=== PATIENT | female | born 1995 | race Caucasian/White ===

== ENCOUNTER → 2020-04-28 | Outpatient (CLI) | payer OTHER ==
--- NOTE | 2020-04-28 16:18 | RADIOLOGY REPORT (SQ) ---
EXAM DESCRIPTION: U/S OB 14+ TRNABD 1GES W/O DOP IMAGES COMPLETED DATE/TIME: 04/28/2020 3:33 pm REASON FOR STUDY: Z34.02 ENCNTR FOR SUPRVSN OF NORMAL FIRST PREG, SECOND TRIMESTER Z34.02 ENCNTR FO R SUPRVSN OF NORMAL FIRST PREG, SECOND TRIME COMPARISON: None. TECHNIQUE: Limited transabdominal grayscale ultrasound for evaluation of specific requested obstetri arias parameters. LIMITATIONS: None. FINDINGS: CERVICAL LENGTH: 2.2 cm. Closed. JILL: adequate amount. FHR: 160 beats per minute. PRESENTATION: Breech. PLACENTA: Posterior. ANATOMY: Not assessed OTHER: EGA: 16 weeks 1 day. WENDY: 10/12/2020. EF thinning semi: 145 grams +/- 21 grams. IMPRESSION: LIMITED OBSTETRICAL ULTRASOUND WITH MEASURED PARAMETERS DELINEATED ABOVE. Trimester of : Second trimester - 13 weeks 1 day to 27 weeks 6 days. TECHNICAL DOCUMENTATION: JOB ID: [id number] 2010 [employer]- All Rights Reserved Reading location - IP/workstation name: [email or web address]
== END ==
LOC: RAD 14:35
PROVIDERS: ATTEND Nurse Practitioner Family
DX: Z34.02 Encounter for supervision of normal first pregnancy, second trimester (principal)
CPT/HCPCS: 76805

== ENCOUNTER → 2020-05-26 | Outpatient (CLI) | payer OTHER ==
--- NOTE | 2020-05-26 16:31 | RADIOLOGY REPORT (SQ) ---
EXAM DESCRIPTION: U/S OB 14+ TRNABD 1GES W/O DOP IMAGES COMPLETED DATE/TIME: 05/26/2020 3:36 pm REASON FOR STUDY: (Z34.02)ENCNTR FOR SUPRVSN OF NORMAL FIRST PREG, SECOND TRIMESTER Z34.02 ENCNTR F OR SUPRVSN OF NORMAL FIRST PREG, SECOND TRIME COMPARISON: 04/28/2020 TECHNIQUE: Static and Dynamic grayscale imaging performed of gravid uterus using transabdominal appr oac. Additional selected color Doppler and spectral images recorded. All stored on PACS. LIMITATIONS: None. FINDINGS: FETUSES SEEN:1 EGA: 20 weeks 3 days. Calculated using BPD,FL,HC,AC documented on images. No discrepancy with clinic al dates. WENDY: 10/10/2020 EFW: 350 grams LVP: 3.7 x 7.6 cm. PLACENTA: Posterior location. GRADE: I PRESENTATION: Breech. ANATOMY: HEART RATE: 152 beats per minute. FOUR CHAMBER HEART: Visualized. THREE VESSEL CORD: Yes. CORD INSERTION: Visualized. KIDNEYS AND BLADDER: Visualized. Appear normal. STOMACH: Visualized. Appears normal. SPINE: Poor visualization due to lie. BRAIN AND LATERAL VENTRICLES: Visualized. Appear normal. OTHER: No other significant finding. MATERNAL ADNEXA: Normal in appearance. CERVICAL LENGTH: 3.7 cm. Closed. OTHER: No other significant finding. IMPRESSION: LIVING INTRAUTERINE . ESTIMATED GESTATIONAL AGE 20 WEEKS 3 DAYS. NO VISUALIZED ANOMALIES. Trimester of : Second trimester - 13 weeks 1 day to 27 weeks 6 days. TECHNICAL DOCUMENTATION: JOB ID: [id number] 2010 [employer]- All Rights Reserved Reading location - IP/workstation name: [email or web address]
== END ==
LOC: RAD 14:44
PROVIDERS: ATTEND Midwife
DX: Z34.02 Encounter for supervision of normal first pregnancy, second trimester (principal); Z3A.20 20 weeks gestation of pregnancy
CPT/HCPCS: 76805